=== PATIENT | male | born 1990 | race Caucasian/White ===

== ENCOUNTER 2020-12-12 11:07 | Emergency (ER) | payer SELFPAY ==
[~2020-12-12] VITALS: Ht 188 cm; Wt 125.7 kg
--- NOTE | 2020-12-12 11:27 | NUR ---
Note [place]ton in EDM - 12/12/20 at 1128 by DUSTIN PAN WASHER: PT PALE, DIAPHORETIC AND TACHYPNEIC, UNABLE TO OBTAIN GOOD WAVEFORM PULSE OX IN TRIAGE. PT BROUGHT BACK TO ROOM TO NOT DELAY ERP EVAL. PRIMARY RN MARI AND VINCENZO AT BEDSIDE.
--- NOTE | 2020-12-12 12:29 | NUR ---
AMBULATORY TO & FROM [facility] W/OUT INCIDENT; GAIT STEADY. NO BM. PT STATES HE TOOK 4 DOSES OF MILK OF MAGNESIA BETWEEN 0700 & 1000 TODAY. LAST BM PRIOR: 0300 TODAY. STATES HE FELT RT FLANK PAIN, NON-RADIATING, THIS MORNING WHILE DRIVING. DENIES UTI SX. LAST ORAL: 024 TODAY. STARTS WORK 0400.
[2020-12-12] MEDS ORDERED: METHOCARBAMOL 750 MG TABLET PO ONE (12:30)
[2020-12-12] MEDS ORDERED: ACETAMINOPHEN 500 MG TABLET PO ONE (12:30)
[2020-12-12 12:31] LABS: BASOPHILS % (AUTO) 0 % (0-1); EOSINOPHILS % (AUTO) 0 % (1-7); LYMPHOCYTES % (AUTO) 13 % (22-44); MEAN CORPUSCULAR HEMOGLOBIN 31.7 pg (27.5-34.5); MEAN CORPUSCULAR HGB CONC 34.5 g/dL (33.2-36.2); MEAN PLATELET VOLUME 8.2 fL (7.4-10.4); MONOCYTES % (AUTO) 4 % (2-9); NEUTROPHILS % (AUTO) 82 % (42-75); PLATELET COUNT 170 x10^3/uL (130-400); RED BLOOD COUNT 4.94 x10^6/uL (4.38-5.82); RED CELL DISTRIBUTION WIDTH 13.1 % (9.4-14.8)
[2020-12-12 12:34] LABS: MD NO
[2020-12-12 12:41] LABS: ALANINE AMINOTRANSFERASE 33 U/L (12-78); ANION GAP 4 mmol/L (5-15); CALCIUM 9.5 mg/dL (8.5-10.1); CHLORIDE 104 mmol/L (98-107); CREATININE 1.08 mg/dL (0.7-1.3)
--- NOTE | 2020-12-12 12:41 | NUR ---
PT PREFERS TO HOLD ON ROBAXIN, AT THIS TIME.
[2020-12-12 12:43] LABS: ALKALINE PHOSPHATASE 115 U/L (45-117); BILIRUBIN,TOTAL 0.5 mg/dL (0.2-1.0); TOTAL PROTEIN 7.3 g/dL (6.4-8.2)
[2020-12-12] MEDS ORDERED: ACETAMINOPHEN 500 MG TABLET ONE (12:43)
--- NOTE | 2020-12-12 12:45 | NUR ---
TYLENOL GIVEN PER EMAR
--- NOTE | 2020-12-12 13:10 | NUR ---
REPORT FROM MONTY GORDON.
[2020-12-12 13:17] LABS: MICROSCOPIC AUTO
--- NOTE | 2020-12-12 13:27 | NUR ---
PT REPORTS HE JUST HAD A BM 10 MINUTES AGO, AND FEELS BETTER. DENIES PAIN AT THIS TIME.
[2020-12-12 14:15] VITALS: BP 140/78
== END 2020-12-12 14:17 | disposition home or self-care (01) ==
LOC: ED 14:15
DX: R10.11 Right upper quadrant pain (principal); R10.31 Right lower quadrant pain; M54.5 Low back pain
CPT/HCPCS: 36415; 80053; 81001; 83690; 85025; 99283